=== PATIENT | female | born 1980 | race Two or more races ===

== ENCOUNTER 2021-12-25 10:15 | Inpatient (IN) | payer OTHER ==
[~2021-12-25] VITALS: Ht 172.7 cm; Wt 115.2 kg
[2022-01-01] MEDS ORDERED: SIMETHICONE125 M1 PO (06:47)
[2022-01-01] MEDS ORDERED: NEURONTIN600 MG PO (06:47)
[2022-01-01] MEDS ORDERED: IBUPROFEN800 MG PO (06:47)
== END 2022-01-01 09:30 | disposition home or self-care (01) | DRG 743 ==
LOC: OB/GYN 12-30 05:30 → O/R 12-30 05:30 → SURH 12-30 10:15 → OB/GYN 12-30 14:27
PROVIDERS: ADMIT Obstetrics & Gynecology; ATTEND Obstetrics & Gynecology
PROC: 0UT70ZZ Resection of Bilateral Fallopian Tubes, Open Approach (ICD-10-PCS; 2021-12-30)
PROC: 0UT90ZZ Resection of Uterus, Open Approach (ICD-10-PCS; principal; 2021-12-30 11:15)
DX: N72 Inflammatory disease of cervix uteri (principal); Z20.822 Contact with and (suspected) exposure to COVID-19